=== PATIENT | female | born 1965 | race Caucasian/White ===

== ENCOUNTER → 2017-07-01 | Outpatient (CLI) | payer BC | LOC: BMCIMAGING 07:46 | PROVIDERS: ATTEND Internal Medicine | DX: Z12.31 Encounter for screening mammogram for malignant neoplasm of breast (principal) | CPT/HCPCS: G0202 ==

== ENCOUNTER → 2018-08-16 | Outpatient (CLI) | payer BC | LOC: BMCIMAGING 09:21 | PROVIDERS: ATTEND Family Medicine | DX: M25.641 Stiffness of right hand, not elsewhere classified (principal) ==